=== PATIENT | female | born 1930 | race Caucasian/White ===

== ENCOUNTER 2017-01-24 21:21 | Inpatient (IN) ==
[2017-01-24 23:14] LABS: MANUAL DIFF NEEDED? NO
[2017-01-24 23:17] LABS: BASO% 0.3 % (0.0-0.8); EOS# 0.18 X1000 (0.0-0.7); EOS% 1.7 % (0.0-10.0); HEMATOCRIT 35.5 % (37.0-47.0); HEMOGLOBIN 11.3 g/dL (12.0-16.0); IMM GRAN# 0.09 X1000 (0.0-0.04); IMM GRAN% 0.8 % (0.0-0.5); LYMPH# 2.22 X1000 (1.2-3.4); LYMPH% 20.4 % (20.5-51.1); MCHC 31.8 g/dL (33-37); MCV 88.1 FL (81-99); MONO# 0.66 X1000 (0.11-0.59); MONO% 6.1 % (1.7-9.3); MPV 10.2 FL (7.4-10.4); NEUT% 70.7 % (42.2-75.2); PLT 318 X1000 (130-400); RBC 4.03 XMIL (4.2-5.4)
[2017-01-24 23:29] LABS: URINE SOURCE CATH
[2017-01-24 23:34] LABS: BILIRUBIN URINE NEGATIVE (NEGATIVE); BLOOD URINE MODERATE (NEGATIVE); COLOR ORANGE; GLUCOSE URINE NEGATIVE (NEGATIVE); LEUKOCYTES URINE LARGE (NEGATIVE); NITRITE URINE NEGATIVE (NEGATIVE); PROTEIN URINE 100 mg/dL (NEGATIVE); SP GRAVITY URINE 1.015; TURBIDITY URINE TURBID (CLEAR); UROBILINOGEN URINE NORMAL (NORMAL)
[2017-01-24 23:41] LABS: UR EPITHELIAL CELLS >10 /HPF (<10); URINE BACTERIA 2+ /HPF; URINE CULTURE NEEDED? YES; URINE MICRO REVIEW NEEDED? YES; URINE RBC TNTC /HPF (<10); URINE WBC TNTC /HPF (<10)
[2017-01-24 23:42] LABS: URINE CASTS NONE SEEN; URINE CRYSTALS NONE SEEN; URINE SMALL ROUND CELLS NONE SEEN
[2017-01-24 23:44] LABS: ALBUMIN 2.9 g/dL (3.5-5.0); CALCIUM 8.1 mg/dL (8.8-10.2); MAGNESIUM 1.8 mg/dL (1.5-2.7); POTASSIUM 4.9 mmol/L (3.5-5.1); TOTAL BILIRUBIN 0.17 mg/dL (0.20-1.00); TOTAL PROTEIN 6.3 g/dL (6.3-8.3)
[2017-01-24 23:47] LABS: UR AMPHETAMINES QUAL NONE DETECTED (NONE DETECT); UR BARBITUATES QUAL NONE DETECTED (NONE DETECT); UR BENZODIAZEPIN QUAL PRESUMPTIVE POSITIVE (NONE DETECT); UR CANNABINOIDS QUAL NONE DETECTED (NONE DETECT); UR COCAINE QUAL NONE DETECTED (NONE DETECT); UR METHADONE QUAL NONE DETECTED (NONE DETECT); UR OPIATES QUAL PRESUMPTIVE POSITIVE (NONE DETECT); UR OXYCODONE QUAL NONE DETECTED (NONE DETECT); UR PCP QUAL NONE DETECTED (NONE DETECT)
[2017-01-24] MEDS ORDERED: ROCEPHIN 1 GM/NS 50 ML IV ONE (23:50)
[2017-01-24] MEDS ORDERED: NS 1,000 ML IV ONE (23:50)
[2017-01-24 23:55] LABS: INR 1.12; PROTIME 11.9 Seconds (9.2-11.7); PTT 30.6 Seconds (22.0-36.0)
--- NOTE | 2017-01-24 23:58 | PROVIDER DOCUMENTATION ---
HPI-General Adult - General Source: EMS - History of Present Illness -Gen Adult Nature of Presenting Problems: Per EMS, [facility] states that they have been hearing rales in pts lungs all day today. Tonight, they states that pt fell out of bed and they felt like pt needed to be seen. PT is a poor historian and unable to answer any questions. They states that pt was also seeing family members and reaching out to her . Onset/Duration: reports: unsure Similar Symptoms Previously?: No Recently seen or treated by another doctor?: No <Mei Crawford - Last Filed: 01/25/17 00:04> <Jose Durant - Last Filed: 01/25/17 00:06> - General Chief Complaint: Abdominal Pain Stated Complaint: fell out of bed, diminished lung sounds Time Seen by Provider: 01/24/17 21:45 Allergies/Adverse Reactions: Patient Allergies Allergy/AdvReac Type Severity Reaction Status Date / Time sulfamethoxazole Allergy RASH Verified 11/03/16 11:22 [From Bactrim] trimethoprim [From Bactrim] Allergy RASH Verified 11/03/16 11:22 Home Medications: Home Medication List Medication Instructions Recorded Confirmed Last Taken Type Allopurinol 100 mg PO DAILY 01/24/17 01/24/17 01/24/17 09:00 History Alprazolam [Xanax] 0.25 mg PO TID 01/24/17 01/24/17 01/24/17 16:30 History Apixaban [Eliquis] 2.5 mg PO BID 01/24/17 01/24/17 01/24/17 21:00 History Cetirizine HCl [Zyrtec] 10 mg PO DAILY 01/24/17 01/24/17 01/24/17 09:00 History Diclofenac Sodium [Voltaren] 1 each TOP 4XDAY 01/24/17 01/24/17 01/24/17 21:00 History Diltiazem [Cardizem] 90 mg PO DAILY 01/24/17 01/24/17 01/24/17 09:00 History Docusate Sodium [Colace] 100 mg PO BID 01/24/17 01/24/17 01/24/17 21:00 History Duloxetine [Cymbalta] 60 mg PO DAILY 01/24/17 01/24/1717 09:00 History Furosemide [Lasix] 40 mg PO BID 01/24/17 01/24/17 01/24/17 21:00 History Guaifenesin [Guaifenesin ER] 600 mg PO BID 01/24/17 01/24/17 01/24/17 21:00 History Hydrocodone/Acetaminophen [Henri[place] 1 each PO Q6H PRN PRN 01/24/17 01/24/17 18:00 History 10-325 Tablet] Insulin Glargine [Lantus] 15 unit SUBQ DAILY 01/24/17 01/24/17 01/24/17 09:00 History Ipratropium/Albuterol Sulfate 1 each INH Q6H PRN PRN 01/24/17 01/24/17 01/21/17 09:00 History [Iprat-Albut 0.5-3(2.5) mg/3 ml] Levofloxacin [Levaquin] 500 mg PO DAILY 01/24/17 01/24/17 01/24/17 09:00 History Levothyroxine [Synthroid] 125 mcg PO QAM 01/24/17 01/24/17 01/24/17 06:00 History Lisinopril 10 mg PO QAM 01/24/17 01/24/17 01/24/17 09:00 History Lorazepam [Ativan] 0.5 mg PO QHS 01/24/17 01/24/17 01/24/17 21:00 History Lorazepam [Ativan] 1 mg PO QHS 01/24/17 01/24/17 01/24/17 21:00 History Omeprazole 20 mg PO BID 01/24/17 01/24/17 01/24/17 16:30 History Potassium Chloride E.r. [Klor-Con] 20 meq PO BID 01/24/17 01/24/17 01/24/17 21: 00 History Pramipexole [Mirapex] 1 each PO DAILY 01/24/17 01/24/17 01/24/17 09:00 History Pravastatin Sodium 80 mg PO QHS 01/24/17 01/24/17 01/24/17 21:00 History Pregabalin [Lyrica] 25 mg PO BID 01/24/17 01/24/17 01/24/17 21:00 History Review of Systems - Adult - REVIEW OF SYSTEMS - ADULT ROS:: unobtainable per condition Constitutional: reports: no symptoms reported Eyes: reports: no symptoms reported Ears, Nose, Mouth & Throat: reports: no symptoms reported Cardiovascular: reports: no symptoms reported Respiratory: reports: no symptoms reported Gastrointestinal: reports: no symptoms reported Genitourinary: reports: no symptoms reported Musculoskeletal: reports: no symptoms reported Integumentary: reports: no symptoms reported Neurological: reports: no symptoms reported Psychiatric: reports: no symptoms reported Endocrine: reports: no symptoms reported Hematologic/Lymphatic: reports: no symptoms reported Allergic/Immunologic: reports: no symptoms reported All Other Systems: Reviewed and Negative <Mie Crawford Last Filed: 01/25/17 00:04> Past History - Adult - PAST MEDICAL HISTORY-ADULT Review of Records: reports: Nursing Assessment Review, Medications Reviewed Major Childhood Illnesses: reports: denies history Cardiovascular: reports: CAD, HTN, hyperlipidemia, PAD, PVD Respiratory: reports: denies history Gastrointestinal: reports: denies history, GERD Neurological: reports: degenerative disease Endocrine/Immune: reports: Diabetes, thyroid disorder - PRIOR SURGERIES/PROCEDURES Surgical/Procedure History: reports: cholecystectomy, hysterectomy, orthopedic ( extremity) - IMMUNIZATION STATUS Childhood Immunizations: See Nurse Assessment Flu Vaccine: See Nurse Assessment - FAMILY HISTORY Family History: reviewed, not pertinent - SOCIAL HISTORY Smoking: non-smoker Substance Use: none/never Alcohol Use Frequency: never <Mei Crawford Last Filed: 01/25/17 00:04> Physical Exam-General - PHYSICAL EXAM-ADULT Initial Vital Signs Reviewed: Yes - CONSTITUTIONAL General Appearance: other (poor historian) - RESPIRATORY Respiratory: crackles (right lower lobe) - CARDIOVASCULAR Cardiovascular: irregularly irregular - GASTROINTESTINAL (ABDOMEN) Abdominal Exam: soft - PSYCHIATRIC Psych/Mental Status: disoriented x 3 <Mei Crawford - Last Filed: 01/25/17 00:04> Progress - XRAY 1 XRAY Study: Chest Impression: Abnormal XRAY Interpretation: right lower lobe infiltrate: Chiquis Durant(ER PA) - CONSULTS/PCP/HOSPITALIST Notification #1 *Consult/PCP/Hospitalist*: Dr. Rahman(hospitialist) Time Discussed: 00:05 Consult Disposition: Will see in ED, Admit <Mei Crawford - Last Filed: 01/25/17 00:04> Departure <TyMei - Last Filed: 01/25/17 00:04> - Departure Time of Disposition Order: 00:05 Certified Medical Emergency: Emergent <Jose Durant - Last Filed: 01/25/17 00:06> - Departure DIAGNOSIS: Acute kidney injury UTI (urinary tract infection) Qualifiers: Urinary tract infection type: site unspecified Hematuria presence: with hematuria Qualified Code(s): N39.0 - Urinary tract infection, site not specified ; R31.9 - Hematuria, unspecified Altered mental status Qualifiers: Altered mental status type: delirium Qualified Code(s): R41.0 - Disorientation , unspecified Pneumonia Qualifiers: Pneumonia type: due to unspecified organism Laterality: right Lung location: lower lobe of lung Qualified Code(s): J18.1 - Lobar pneumonia, unspecified organism Disposition: ADMITTED INPATIENT 09 Condition: Stable Attestation - Physician/ AIMEE Attestation Patient care was provided by Advanced Practice Provider:: Yes Advanced Practice Provider:: Jose Durant Advanced Practice Provider documentation review:: The Mid-level provider documentation, treatment plan and medical decision making was reviewed by the physician who agrees with all treatment and medical decision making by the P. <Jose Durant - Last Filed: 01/25/17 00:06> Physician Attestation
[2017-01-25] MEDS ORDERED: LEVAQUIN 750 MG in NS 150 ML IV SCH (01:45)
[2017-01-25] MEDS ORDERED: LEVAQUIN 750 MG/D5W 150 ML IV SCH (03:00)
[2017-01-25] MEDS: NS 1,000 ML IV SCH ×3 (03:11→17:16)
[2017-01-25] MEDS: ZOSYN 3.375 GM/NS 50 ML IV SCH ×4 (03:11→21:22)
--- NOTE | 2017-01-25 03:38 | HISTORY AND PHYSICAL ---
PRIMARY CARE PHYSICIAN: No primary care physician. HISTORY OF PRESENT ILLNESS: Mr. Merchant is an 86-year-old lady with a past medical history of chronic atrial fibrillation, hypertension, type 2 diabetes, hypothyroidism, reflux disease, peripheral arterial disease, coronary artery disease, iron-deficiency anemia, and gout who is a resident of [facility]. She was found by the staff on the floor trying to grab at the imaginary objects and talking to her who has been for a while. The patient was then brought in by EMS for further evaluation. She is still confused, albeit very calm. Thus, I am unable to get any meaningful information from the patient. She initially told the ER that she had abdominal pain but when I questioned her, she denies any pain from anywhere but complains of being thirsty. She also complains of being weak. REVIEW OF SYSTEMS: Obviously cannot be obtained because the patient is very confused even though she is awake. ALLERGIES: Sulfa and methimazole. HOME MEDICATION LIST: Patient is on hydrocodone 7.5 mg 1 tablet q.6 p.r.n., DuoNeb q.6 p.r.n., allopurinol 100 mg daily, Xanax 0.25 mg t.i.d., Eliquis 2.5 mg b.i.d., Ativan 1.5 mg at bedtime, Cardizem 90 mg daily, Zyrtec 10 mg daily, Colace 100 mg b.i.d., Cymbalta 60 mg daily, Voltaren gel 4 times a day, guaifenesin 600 mg b.i.d., Klor-Con 20 mEq b.i.d., Lantus 50 units daily, Lasix 40 mg b.i.d. She had previously been on Levaquin 500 mg daily, lisinopril 10 mg q.a.m., pregabalin 25 mg b.i.d., Mirapex 0.25 mg daily, omeprazole 20 mg b.i.d., pravastatin 80 mg at bedtime, Synthroid 125 mcg q.a.m. SURGICAL HISTORY: Patient has had cholecystectomy, hysterectomy, total left knee arthroscopy, back surgery. FAMILY HISTORY: Family history could not be obtained from patient for obvious reasons. SOCIAL HISTORY: She has been reportedly bedridden for 3 years and had been living with her family prior to moving to [place]. Note, there is no documented history of tobacco, alcohol, or illicit drug use. LAB WORK: Chest film shows right lower lobe pneumonia. No increased vascular markings. EKG shows atrial fibrillation with low voltage, with nonspecific ST-wave changes. Her other labs, white count 7000, hemoglobin and hematocrit 11 and 35, platelets 318,000 with no left shift. BUN is 1.8, creatinine has gone up from 0.6-1.8, glucose is 247. Troponin 0.23. ProBNP is 2399. PT and PTT are normal. Urine drug screen was only positive for opiates and benzodiazepines. Urinalysis shows large leukocytes, 2+ bacteria, too numerous to count WBCs and RBCs, moderate blood but she also has greater than 10 epithelial cells. PHYSICAL EXAMINATION: VITAL SIGNS: Blood pressure was initially 80/50 but since her bolus, is now 107/40. Heart rate is 77, respirations 14, temperature is 98.7 degrees, she is 98% on 2 L. GENERAL: Patient is an elderly, woman who is alert and only oriented to person but not to place or time. HEENT: Head is normocephalic, atraumatic. Eyes, ANA, EOMI. She is anicteric and mildly pale. ENT and oropharynx exam is notable for severe xerostomia. No exudates or erythema noted. No central cyanosis is noted. NECK: Supple. No JVD or carotid bruit. No thyromegaly. CHEST: The patient has decreased entry in both lung sarmiento. There are a few scattered wheezes. CARDIOVASCULAR: First and second heart sounds heard. No gallops, murmurs, or rubs. Rhythm is irregular. ABDOMEN: Scaphoid, soft. No focal areas of tenderness. No mass or organomegaly. Bowel sounds are hypoactive. RECTAL: Examination deferred at this time. EXTREMITIES: The patient has trace edema in her lower extremities. Pulses distally are symmetrical but are slightly diminished in volume. No clubbing or peripheral cyanosis. NEUROLOGICAL: Patient is able to move all extremities. No focality noted. SKIN: Intact with decreased turgor. No overt breakdown or erythema or rash. MUSCULOSKELETAL: Examination is grossly normal otherwise. ASSESSMENT: 1. Right lower lobe pneumonia, hospital-acquired. 2. Acute kidney injury secondary to dehydration. 3. Dehydration. 4. Encephalopathy which could be probably metabolic versus toxic (i.e., that is from acute kidney injury and possibly from toxicity from her central nervous system medications and Levaquin). 5. Coronary artery disease. 6. Chronic atrial fibrillation. 7. Type 2 diabetes, uncontrolled. 8. Hypothyroidism. 9. Peripheral arterial disease. 10. Reflux disease. 11. Anemia of chronic inflammation. 12. Gout. 13. Probable urinary tract infection. PLAN: At this time, we will start patient on Zosyn for anaerobic and gram-negative petrona coverage. I initially started the patient on Levaquin but because she had been taking this when she was discharged, it is highly unlikely that this will be beneficial in this patient. Also, because Levaquin has been associated with [employer] cognitive issues in elderly patients, I will discontinue that. I do not think patient has atypical pathogens so there is no strong indication for me to put her on, although dual gram-negative coverage with Levaquin may have been beneficial. We will start the patient on vancomycin to cover for MRSA since the patient has been in and out of many facilities. DuoNebs will be instituted and O2 support will be given for pneumonia. Patient's confusion, as I stated earlier, could be primary from her acute kidney injury, from poor oral intake, and also from poor clearance of [employer] active medications which will all be held for a couple of days until the patient's renal function improves. The patient will be hydrated. If hydration fails to correct this, then we will consider consulting nephrology to see. In the interim, we will discontinue SOTERO inhibitors and diuretics for now until the patient's renal function improves. Also, discontinue antihypertensives as she is borderline hypotensive. Other medical issues (i.e., her atrial fibrillation), she will continue with anticoagulation. Regarding diabetes, she will continue with Lantus and sliding scale. For coronary artery disease, continue statin therapy, (?), aspirin may need to be started. Probiotics will be given to prevent antibiotic induced diarrhea in this patient.
[2017-01-25 03:46] LABS: UR CREAT RANDOM 77.3 mg/dL (11-20)
--- NOTE | 2017-01-25 05:22 | EKG Report ---
Test Performed on : 01/24/2017 10:06:49 PM Test Reason : sob, epigastric pain Blood Pressure : / mmHG Vent. Rate : 093 BPM Atrial Rate : 267 BPM P-R Int : 000 ms QRS Dur : 074 ms QT Int : 328 ms P-R-T Axes : 000 053 050 degrees QTc Int : 407 ms Atrial fibrillation. Low voltage QRS Abnormal ECG When compared with ECG of 04-NOV-2016 09:17, Nonspecific T wave abnormality no longer evident in Inferior leads Nonspecific T wave abnormality no longer evident in Lateral leads Unconfirmed Result
--- NOTE | 2017-01-25 05:25 | EKG Report ---
Test Performed on : 01/25/2017 00:31:47 AM Test Reason : possible ecg change Blood Pressure : / mmHG Vent. Rate : 067 BPM Atrial Rate : 288 BPM P-R Int : 000 ms QRS Dur : 072 ms QT Int : 394 ms P-R-T Axes : 000 048 048 degrees QTc Int : 416 ms Atrial fibrillation. Low voltage QRS Cannot rule out Anterior infarct , age undetermined Abnormal ECG When compared with ECG of 24-JAN-2017 22:06, (Unconfirmed) No significant change was found Unconfirmed Result
[2017-01-25] MEDS: HUMALOG SUBQ SCH ×4 (06:37→21:26)
[2017-01-25] MEDS ORDERED: VANCOMYCIN 1 GM/NS 250 ML IV ONE (06:39)
[2017-01-25] MEDS ORDERED: VANCOMYCIN IV PER PHARMACY MISC SCH (06:39)
[2017-01-25] MEDS ORDERED: NS 500 ML IV ONE (06:53)
--- NOTE | 2017-01-25 07:38 | Diag Imaging Result Document ---
PROCEDURE NAME: HEAD W/O CONTRAST - 01/24/[address], 01/24/2017: A CT dose reduction protocol was used. COMPARISON: 10/21/2016. FINDINGS: The ventricles and sulci are normal in size and contour. There is no mass, hemorrhage, or evidence of acute ischemia. The bony calvaria is intact. The visualized paranasal sinuses and mastoid air cells are clear. IMPRESSION: Negative head CT. MTDD
[2017-01-25] MEDS: SYNTHROID PO SCH (08:07)
--- NOTE | 2017-01-25 08:18 | Diag Imaging Result Document ---
PROCEDURE NAME: CHEST-PORTABLE - 01/24/2017 SINGLE FRONTAL RADIOGRAPH OF THE CHEST: COMPARISON: 11/08/2016. FINDINGS: Inspiration is suboptimal. There is evidence of prior granulomatous disease, stable. There is suggestion of minimal subsegmental atelectasis at the lung bases. The lungs are clear otherwise. Cardiac silhouette and central vasculature are grossly unremarkable for AP technique. IMPRESSION: Poor inspiration and suggestion of minimal bibasilar atelectasis. No definite acute pathology, otherwise.
[2017-01-25] MEDS ORDERED: VANCOMYCIN 1.6 GM in NS 250 ML IV ONE (10:00)
[2017-01-25] MEDS: DUONEB (A & A) INH SCH ×4 (10:08→19:41)
[2017-01-25] MEDS: COLACE PO SCH ×2 (10:53→21:27)
[2017-01-25] MEDS: ELIQUIS PO SCH ×2 (10:53→21:26)
[2017-01-25] MEDS: CULTURELLE PO SCH ×2 (10:53→21:26)
[2017-01-25] MEDS: PRILOSEC PO SCH ×2 (10:54→21:25)
[2017-01-25] MEDS: MUCINEX PO SCH ×2 (10:54→21:25)
[2017-01-25] MEDS: LANTUS SUBQ SCH (10:55)
[2017-01-25] MEDS: XANAX PO SCH ×2 (10:55→21:24)
[2017-01-25] MEDS: PRAVACHOL PO SCH (21:25)
[2017-01-26] MEDS: ZOSYN 3.375 GM/NS 50 ML IV SCH ×4 (00:48→19:46)
[2017-01-26] MEDS: DUONEB (A & A) INH SCH ×4 (03:41→22:27)
[2017-01-26 04:48] LABS: MANUAL DIFF NEEDED? NO
[2017-01-26 04:52] LABS: BASO% 0.2 % (0.0-0.8); EOS# 0.28 X1000 (0.0-0.7); EOS% 3.1 % (0.0-10.0); HEMATOCRIT 32.5 % (37.0-47.0); HEMOGLOBIN 10.1 g/dL (12.0-16.0); IMM GRAN# 0.05 X1000 (0.0-0.04); IMM GRAN% 0.6 % (0.0-0.5); LYMPH# 1.47 X1000 (1.2-3.4); LYMPH% 16.2 % (20.5-51.1); MCH 27.4 PG (27-31); MCHC 31.1 g/dL (33-37); MCV 88.3 FL (81-99); MONO# 0.45 X1000 (0.11-0.59); MPV 10.4 FL (7.4-10.4); NEUT% 74.9 % (42.2-75.2); PLT 279 X1000 (130-400); RBC 3.68 XMIL (4.2-5.4)
[2017-01-26 05:08] LABS: AGAP 11; BUN 15 mg/dL (8-22); CALCIUM 7.4 mg/dL (8.8-10.2); CHLORIDE 108 mmol/L (98-107); COSMO 280; POTASSIUM 3.9 mmol/L (3.5-5.1); SODIUM 139 mmol/L (136-145); TCO2 20 mmol/L (25-35)
[2017-01-26] MEDS: HUMALOG SUBQ SCH ×4 (06:10→20:22)
[2017-01-26] MEDS: SYNTHROID PO SCH (06:16)
[2017-01-26] MEDS: XANAX PO SCH ×2 (09:05→20:16)
[2017-01-26] MEDS: COLACE PO SCH ×2 (09:05→20:17)
[2017-01-26] MEDS: ELIQUIS PO SCH ×2 (09:05→20:16)
[2017-01-26] MEDS: CULTURELLE PO SCH ×2 (09:06→20:16)
[2017-01-26] MEDS: PRILOSEC PO SCH ×2 (09:06→20:16)
[2017-01-26] MEDS: MUCINEX PO SCH ×2 (09:06→20:16)
[2017-01-26] MEDS: LANTUS SUBQ SCH (09:53)
--- NOTE | 2017-01-26 10:02 | PROGRESS NOTE ---
DATE: 01/26/2017 SUBJECTIVE: The patient is little confused today but awake, alert and talking. She is eating well this morning. OBJECTIVE: Vital signs: Blood pressure is in 98/63, pulse of 93, respirations 22, temperature 97.5 degrees, sat 96% on 2 liters. General Appearance: Obese white female a little confused. HEENT: Anicteric. Poor dentition. Neck: Supple. No JVD. No bruit. Cardiovascular: Mildly tachycardic at times. Respiratory: Coarse crackles bilaterally. GI: Soft, nontender, nondistended. Normoactive bowel sounds. Musculoskeletal: No clubbing, cyanosis, or edema. LABORATORY: Her white count 9.06, hemoglobin 10.1, hematocrit of 32.5, platelets of 279,000. Chemistry: Sodium 139, potassium 3.9, chloride 108, bicarb 20, BUN 15, creatinine 0.8, glucose of 136. Culture from the urine grew out gram-negative petrona that is less than 100,000 colony and blood culture grew out gram-positive cocci 1 out of 2 so far. ASSESSMENT AND PLAN: This is an 78-year-old, white female admitted to the hospital for confusion and altered mentation. 1. Right lower lobe pneumonia. We will continue Zosyn and vancomycin for healthcare-associated pneumonia. Cultures are pending so far and gram-positive cocci grew out of blood. 2. Urinary tract infection. The patient on Zosyn but is less than 100,000 colonies; treating is not necessary. 3. Acute renal failure secondary to dehydration, that is much improved. 4. Atrial fibrillation. The patient is on Eliquis for anticoagulations. We will resume her diltiazem when her blood pressure is better controlled. 5. Depression. Continue her Cymbalta. 6. Hypothyroidism. Continue Synthroid. 7. Gastroesophageal reflux disease. Continue Prilosec. 8. Hyperlipidemia. Continue Pravachol. 9. Code Status. The patient is a full code.
[2017-01-26] MEDS ORDERED: CALMOSEPTINE OINTMENT TOP PRN (10:11)
[2017-01-26] MEDS: LEVAQUIN 750 MG/D5W 150 ML IV SCH (11:37)
[2017-01-26] MEDS: SANTYL OINT TOP SCH (16:25)
[2017-01-26] MEDS: PRAVACHOL PO SCH (20:16)
[2017-01-26] MEDS ORDERED: LASIX PO SCH (21:00)
[2017-01-27] MEDS: ZOSYN 3.375 GM/NS 50 ML IV SCH ×3 (01:36→18:59)
[2017-01-27] MEDS: DUONEB (A & A) INH SCH ×4 (02:35→22:58)
[2017-01-27] MEDS: SYNTHROID PO SCH (06:15)
[2017-01-27] MEDS: HUMALOG SUBQ SCH ×4 (07:00→21:25)
[2017-01-27] MEDS: MUCINEX PO SCH ×2 (09:00→21:00)
[2017-01-27] MEDS: PRILOSEC PO SCH ×2 (09:00→21:00)
[2017-01-27] MEDS: XANAX PO SCH ×2 (09:00→21:00)
[2017-01-27] MEDS: ELIQUIS PO SCH ×2 (09:00→21:00)
[2017-01-27] MEDS: CULTURELLE PO SCH ×2 (09:00→21:00)
[2017-01-27] MEDS: COLACE PO SCH ×2 (09:00→21:24)
[2017-01-27] MEDS ORDERED: VANCOMYCIN 1.3 GM in NS 250 ML IV SCH ×4 (10:00)
--- NOTE | 2017-01-27 10:06 | PROGRESS NOTE ---
DATE: 01/27/2017 SUBJECTIVE: The patient is doing a little better today. She has no fever, no chills. No nausea, vomiting. She is eating well. Still confused. Her was at the bedside. All questions were invited and entertained. OBJECTIVE: Vital signs: Blood pressure is within normal limits at 99/63, currently it is 124 systolic, satting 100%. General appearance: White female in no acute distress, pleasantly confused. HEENT: Anicteric sclerae, conjunctivae. Neck: Supple. No JVD. No bruit. Cardiovascular: S1, S2. Normal rate and rhythm. No murmur, rubs, or gallops. Pulmonary: Clear to auscultation bilaterally. GI: Soft, nontender, nondistended. Normoactive bowel sounds. Musculoskeletal: No clubbing, cyanosis, or edema. LABORATORY: White count today 8.32, hemoglobin 10.6, hematocrit of 33.5, platelets 295. Sodium 141, potassium 3.5, chloride 107, bicarbonate 20, BUN 9, creatinine. 0.6, glucose of 125. ASSESSMENT AND PLAN: This is an 78-year-old, white female with dementia admitted for right lower lobe pneumonia. 1. Right lower lobe pneumonia. We will continue Zosyn and vancomycin for healthcare-associated pneumonia. Pending for blood culture to finalize. So far, gram-negative cocci grew out 1/2. 2. Urinary tract infection with gram-negative petrona, but less than 100,000 colonies. No treatment is necessary. 3. Acute renal failure, resolved. 4. Atrial fibrillation. Continue diltiazem and Eliquis. 5. Depression. Continue Cymbalta. 6. Hypothyroidism. Continue Synthroid. 7. Hyperlipidemia. Continue Pravachol. CODE STATUS: The patient is a full code.
[2017-01-27] MEDS ORDERED: NS 250 ML ONE (12:49)
[2017-01-27] MEDS: HALDOL IM PRN ×2 (15:30→21:00)
--- NOTE | 2017-01-27 15:57 | Diag Imaging Result Document ---
PROCEDURE NAME: CHEST-PORTABLE - 01/27/2017 PORTABLE CHEST AT 1045 HOURS: FINDINGS: The inspiration is slightly suboptimal. There may be minimal atelectasis in the lung bases. The heart size is at the upper limits of normal. IMPRESSION: Bibasilar atelectasis.
[2017-01-27 17:04] LABS: BASO% 0.2 % (0.0-0.8); EOS% 2.4 % (0.0-10.0); HEMATOCRIT 33.5 % (37.0-47.0); HEMOGLOBIN 10.6 g/dL (12.0-16.0); IMM GRAN# 0.09 X1000 (0.0-0.04); IMM GRAN% 1.1 % (0.0-0.5); LYMPH# 1.82 X1000 (1.2-3.4); LYMPH% 21.9 % (20.5-51.1); MANUAL DIFF NEEDED? NO; MCH 27.7 PG (27-31); MCHC 31.6 g/dL (33-37); MCV 87.7 FL (81-99); MONO# 0.56 X1000 (0.11-0.59); MONO% 6.7 % (1.7-9.3); MPV 10.2 FL (7.4-10.4); NEUT% 67.7 % (42.2-75.2); PLT 295 X1000 (130-400); RBC 3.82 XMIL (4.2-5.4)
[2017-01-27 17:09] LABS: AGAP 14; BUN 9 mg/dL (8-22); CALCIUM 7.9 mg/dL (8.8-10.2); CHLORIDE 107 mmol/L (98-107); COSMO 281; POTASSIUM 3.5 mmol/L (3.5-5.1); SODIUM 141 mmol/L (136-145); TCO2 20 mmol/L (25-35)
[2017-01-27] MEDS: LANTUS SUBQ SCH (17:24)
[2017-01-27] MEDS: LEVAQUIN 750 MG/D5W 150 ML IV SCH (17:25)
[2017-01-27] MEDS: SANTYL OINT TOP SCH (17:29)
[2017-01-27 20:35] LABS: INR 1.15; PROTIME 12.2 Seconds (9.2-11.7)
[2017-01-27] MEDS: PRAVACHOL PO SCH (21:00)
--- NOTE | 2017-01-27 21:39 | Diag Imaging Result Document ---
PROCEDURE NAME: CHEST-PORTABLE - 01/27/2017 AP PORTABLE CHEST DATED 01/27/2017 AT 1328 HOURS: FINDINGS: There is a right-sided PICC line with its tip just above the right atrium. There is some atelectasis in both lung bases, particularly in the left costophrenic angle. No previous studies are available for comparison. The cardiomediastinal silhouette is slightly enlarged and the pulmonary vascularity is prominent. There are some scattered granulomata. IMPRESSION: Borderline cardiomegaly with bibasilar atelectasis.
[2017-01-28] MEDS: DUONEB (A & A) INH SCH ×4 (02:50→19:33)
[2017-01-28] MEDS: ZOSYN 3.375 GM/NS 50 ML IV SCH ×2 (03:19→08:15)
[2017-01-28 04:33] LABS: MANUAL DIFF NEEDED? NO
[2017-01-28 04:40] LABS: BASO% 0.3 % (0.0-0.8); EOS# 0.17 X1000 (0.0-0.7); EOS% 1.7 % (0.0-10.0); HEMATOCRIT 30.5 % (37.0-47.0); HEMOGLOBIN 9.9 g/dL (12.0-16.0); IMM GRAN# 0.13 X1000 (0.0-0.04); IMM GRAN% 1.3 % (0.0-0.5); LYMPH# 2.16 X1000 (1.2-3.4); LYMPH% 21.6 % (20.5-51.1); MCH 27.9 PG (27-31); MCHC 32.5 g/dL (33-37); MCV 85.9 FL (81-99); MONO# 0.62 X1000 (0.11-0.59); MONO% 6.2 % (1.7-9.3); MPV 9.5 FL (7.4-10.4); NEUT% 68.9 % (42.2-75.2); PLT 321 X1000 (130-400); RBC 3.55 XMIL (4.2-5.4)
[2017-01-28 04:55] LABS: AGAP 13; BUN 5 mg/dL (8-22); CALCIUM 8.3 mg/dL (8.8-10.2); CHLORIDE 107 mmol/L (98-107); COSMO 279; POTASSIUM 3.5 mmol/L (3.5-5.1); SODIUM 140 mmol/L (136-145); TCO2 20 mmol/L (25-35)
[2017-01-28] MEDS: SYNTHROID PO SCH (06:44)
[2017-01-28] MEDS: HUMALOG SUBQ SCH ×4 (06:44→20:37)
[2017-01-28] MEDS: CULTURELLE PO SCH ×2 (08:15→20:33)
[2017-01-28] MEDS: ELIQUIS PO SCH ×2 (08:15→20:34)
[2017-01-28] MEDS: PRILOSEC PO SCH ×2 (08:15→20:34)
[2017-01-28] MEDS: XANAX PO SCH ×2 (08:15→20:34)
[2017-01-28] MEDS: MUCINEX PO SCH ×2 (08:15→20:34)
[2017-01-28] MEDS: HALDOL IM PRN (08:15)
[2017-01-28] MEDS: SANTYL OINT TOP SCH (08:16)
--- NOTE | 2017-01-28 09:42 | PROGRESS NOTE ---
DATE: 01/28/2017 SUBJECTIVE: The patient is having coughing fits this morning. She is a little drowsy. Still confused which is at her baseline. OBJECTIVE: Vital signs: Blood pressure 120/78, pulse of 100, respirations 24, temperature 97.2 degrees, saturation of 97% on 2 L. General appearance: Well-developed, well-nourished white female in mild distress. HEENT: Anicteric. Clear conjunctivae. Neck: Supple. No JVD. No bruit. Cardiovascular: S1, S2. Normal rate and rhythm. No murmur, rubs, or gallops. Pulmonary: Coarse crackles bilaterally. GI: Soft, nontender, nondistended. Normoactive bowel sounds. Musculoskeletal: No clubbing, cyanosis, or edema. LABORATORY: White count 10.02, hemoglobin 9.9, hematocrit 30.5, platelet of 321,000. Chemistry: Sodium 140, potassium 3.5, chloride 107, bicarb 20, BUN 5, creatinine 0.5, glucose 139. Blood culture grew out enterococcal faecalis, sensitive to vancomycin and ampicillin. Her urine grew out Enterobacter complex but less than 100,000. ASSESSMENT AND PLAN: 1. This is an 86-year-old admitted to the hospital for acute respiratory failure and was found to have pneumonia. Sputum culture grew out enterococcal faecalis that is sensitive to ampicillin and vancomycin. Will stop the vancomycin and Zosyn. We will start the patient on ampicillin. 2. Urinary tract infection, less than 100,000 colony. We will not treat. 3. Acute renal failure, resolved. 4. Atrial fibrillation. Continue diltiazem and Eliquis. 5. Depression. Continue Cymbalta. 6. Hypothyroidism. Continue Synthroid. 7. Hyperlipidemia. Continue Pravachol. 8. Dementia with confusion. At her baseline.
[2017-01-28] MEDS: COLACE PO SCH ×2 (11:01→20:34)
[2017-01-28] MEDS: UNASYN 3 GM/NS 3 GM/100 ML IVPB IV SCH ×3 (11:10→22:53)
[2017-01-28] MEDS: LANTUS SUBQ SCH (18:12)
[2017-01-28] MEDS: LEVAQUIN 750 MG/D5W 150 ML IV SCH (18:17)
[2017-01-28] MEDS: PRAVACHOL PO SCH (20:33)
[2017-01-29] MEDS: DUONEB (A & A) INH SCH ×4 (02:39→19:29)
[2017-01-29] MEDS: UNASYN 3 GM/NS 3 GM/100 ML IVPB IV SCH ×3 (04:34→16:18)
[2017-01-29 04:44] LABS: MANUAL DIFF NEEDED? NO
[2017-01-29 04:47] LABS: BASO% 0.3 % (0.0-0.8); EOS# 0.12 X1000 (0.0-0.7); EOS% 1.3 % (0.0-10.0); HEMATOCRIT 28.8 % (37.0-47.0); HEMOGLOBIN 9.3 g/dL (12.0-16.0); IMM GRAN# 0.09 X1000 (0.0-0.04); LYMPH# 1.58 X1000 (1.2-3.4); MCH 27.8 PG (27-31); MCHC 32.3 g/dL (33-37); MCV 86.2 FL (81-99); MONO# 0.61 X1000 (0.11-0.59); MONO% 6.6 % (1.7-9.3); MPV 9.4 FL (7.4-10.4); NEUT% 73.8 % (42.2-75.2); PLT 300 X1000 (130-400); RBC 3.34 XMIL (4.2-5.4)
[2017-01-29 05:41] LABS: AGAP 15; BUN 3 mg/dL (8-22); CALCIUM 8.2 mg/dL (8.8-10.2); CHLORIDE 109 mmol/L (98-107); COSMO 282; POTASSIUM 2.7 mmol/L (3.5-5.1); SODIUM 142 mmol/L (136-145); TCO2 18 mmol/L (25-35)
[2017-01-29] MEDS: HUMALOG SUBQ SCH ×4 (06:01→20:10)
[2017-01-29] MEDS: SYNTHROID PO SCH (06:58)
[2017-01-29 07:37] LABS: MAGNESIUM 1.6 mg/dL (1.5-2.7)
[2017-01-29] MEDS ORDERED: MAGNESIUM SULFATE 2 GM/S.W.I. 2 GM/50 ML IVPB IV ONE (08:43)
[2017-01-29] MEDS ORDERED: POTASSIUM PHOSPHATE 40 MMOL in NS 250.0000 ML IV ONE (09:00)
[2017-01-29] MEDS ORDERED: POTASSIUM PHOSPHATE 40 MMOL in NS 250 ML IV ONE (09:00)
[2017-01-29] MEDS: CULTURELLE PO SCH ×2 (09:12→20:10)
[2017-01-29] MEDS: CYMBALTA PO SCH (09:13)
[2017-01-29] MEDS: PRILOSEC PO SCH ×2 (09:13→20:10)
[2017-01-29] MEDS: XANAX PO SCH ×2 (09:13→20:10)
[2017-01-29] MEDS: COLACE PO SCH ×2 (09:13→20:11)
[2017-01-29] MEDS: MUCINEX PO SCH ×2 (09:13→20:10)
[2017-01-29] MEDS: ELIQUIS PO SCH ×2 (09:20→20:10)
[2017-01-29] MEDS: SANTYL OINT TOP SCH (09:20)
[2017-01-29] MEDS: LANTUS SUBQ SCH (09:21)
--- NOTE | 2017-01-29 14:14 | PROGRESS NOTE ---
DATE: 01/29/2017 SUBJECTIVE: The patient is resting comfortably in bed. She has no complaints. No acute events noted overnight. OBJECTIVE: Vital Signs: Temperature 98 degrees, blood pressure 146/64, heart rate 89, respirations 20, O2 saturations 100% on 2 L nasal cannula. General: This is an elderly female, lying comfortably in bed, in no acute distress. Head: Normocephalic, atraumatic. Heart: S1, S2 normal. Regular rate and rhythm. Lungs: Clear to auscultation bilaterally. No crackles. No rales. Abdomen: Positive bowel sounds. Soft, nontender, nondistended. Extremities: No edema. No cyanosis. LABS: White blood cell count 9.2, hemoglobin 9.3, hematocrit 28, platelets 300, 000. Sodium 142, potassium 2.7, chloride 109, CO2 18. BUN 3, creatinine 0.5, glucose 148. Calcium 8.2, phosphorus 1.6, magnesium 1.6. ASSESSMENT AND PLAN: 1. Enterococcus faecalis bacteremia. The patient is currently on ampicillin. 2. Atrial fibrillation. The patient is rate controlled on diltiazem. Continue on Eliquis. 3. Situational depression. Continue on Cymbalta. 4. Hypothyroidism. Continue on Synthroid. 5. Dyslipidemia. Continue on Pravachol. The patient is stable for transfer to the medical floor. Continue to follow with physical therapy. cc: Lazara Garcia MD [facility]
[2017-01-29] MEDS: LEVAQUIN 750 MG/D5W 150 ML IV SCH (16:18)
[2017-01-29] MEDS: AMPICILLIN 2 GM/NS 2 GM/100 ML IVPB IV SCH (20:09)
[2017-01-29] MEDS: PRAVACHOL PO SCH (20:10)
[2017-01-29] MEDS: MAXIPIME 2 GM/NS 2 GM/100 ML IVPB IV SCH (20:10)
--- NOTE | 2017-01-29 21:20 | CONSULTATION ---
DATE OF CONSULTATION: 01/29/2017 CONCLUSION: Patient was admitted to the hospital with an altered mental status the exact etiology of which is uncertain to me. She does have a positive blood culture for enterococcus. This could represent a true bacteremia or it could be a contaminant. The patient also has an Enterobacter urinary tract infection. Again this could be asymptomatic or could be responsible for her being admitted to the hospital. RECOMMENDATIONS: I have placed the patient on IV ampicillin and cefepime to treat the enterococcal bacteremia and Enterobacter UTI respectively. DISCUSSION: The patient is unable provide a history. No family member is present. History was taken from review of the data in the computer. Patient was admitted to the hospital with an altered mental status. She has a CBC with a white count of 9280, hemoglobin 9.3 , and platelet count 300,000. Creatinine is 0.5. GFR is greater than 60. One blood culture is growing enterococcus. A urine culture is growing Enterobacter. Chest x-ray shows bibasilar atelectasis. PAST MEDICAL HISTORY: Positive for atrial fibrillation, hypertension, diabetes mellitus, hypothyroidism, gastroesophageal reflux disease, peripheral arterial disease, chronic venous insufficiency of the legs, degenerative joint disease, coronary artery disease, iron deficiency anemia, gout. INFECTIOUS DISEASE HISTORY: Positive for urinary tract infections and leg cellulitis. PAST SURGICAL HISTORY: Positive for cholecystectomy, hysterectomy and left total knee arthroplasty. FAMILY HISTORY: Unobtainable. SOCIAL HISTORY: The patient lives at [facility]. She has been bedridden for 3 years. She does not smoke cigarettes, drink alcoholic beverages or use illicit drugs. Patient has a history of drug allergy to trimethoprim sulfamethoxazole. MEDICATIONS: Taken at the snf include Lyrica, pravastatin, Mirapex, omeprazole, Ativan, Synthroid, Levaquin, ipratropium inhaler, insulin, hydrocodone, furosemide, Cymbalta, Colace, Cardizem, Voltaren, Zyrtec, Eliquis, Xanax and allopurinol. PHYSICAL EXAMINATION: Vital Signs: Temperature is 97.6, pulse 98, respirations 23, blood pressure 140/80. The patient's weight is listed as 165 pounds. General: This is an ill- appearing, elderly female. She is in no acute distress. Head, eyes, ears, nose , and throat: I could not really test how good her hearing is. She does track with her eyes. She did attempt to talk but for the most part, I could not understand what she was saying. Neck: No meningismus. Lungs: There were scattered rhonchi bilaterally. Cardiovascular: Irregular heart rate. Abdomen: Soft and nontender. Neurologic: The patient is lethargic. She did sometimes get a little more alert and start talking but as mentioned above, I could not understand what she was saying. She did not follow request to move her extremities. There was no tremor. Integument: No rash. Thank you for the consult. cc: Carlos Ardon MD [facility]
[2017-01-29] MEDS: NORCO-10 PO PRN (21:31)
[2017-01-30] MEDS: AMPICILLIN 2 GM/NS 2 GM/100 ML IVPB IV SCH ×4 (02:11→20:43)
[2017-01-30] MEDS: DUONEB (A & A) INH SCH ×4 (03:11→22:57)
[2017-01-30 06:20] LABS: MANUAL DIFF NEEDED? NO
[2017-01-30] MEDS: NORCO-10 PO PRN ×2 (06:23→20:52)
[2017-01-30] MEDS: SYNTHROID PO SCH (06:23)
[2017-01-30 06:26] LABS: BASO% 0.2 % (0.0-0.8); EOS# 0.19 X1000 (0.0-0.7); EOS% 2.1 % (0.0-10.0); HEMATOCRIT 29.5 % (37.0-47.0); HEMOGLOBIN 9.5 g/dL (12.0-16.0); IMM GRAN# 0.12 X1000 (0.0-0.04); IMM GRAN% 1.3 % (0.0-0.5); LYMPH# 1.72 X1000 (1.2-3.4); LYMPH% 18.8 % (20.5-51.1); MCH 27.5 PG (27-31); MCHC 32.2 g/dL (33-37); MCV 85.5 FL (81-99); MONO# 0.59 X1000 (0.11-0.59); MONO% 6.4 % (1.7-9.3); MPV 9.5 FL (7.4-10.4); NEUT% 71.2 % (42.2-75.2); PLT 295 X1000 (130-400); RBC 3.45 XMIL (4.2-5.4)
[2017-01-30] MEDS: HUMALOG SUBQ SCH ×3 (06:40→16:23)
[2017-01-30 07:14] LABS: AGAP 14; BUN 4 mg/dL (8-22); CHLORIDE 109 mmol/L (98-107); COSMO 285; MAGNESIUM 1.9 mg/dL (1.5-2.7); POTASSIUM 3.6 mmol/L (3.5-5.1); SODIUM 143 mmol/L (136-145); TCO2 20 mmol/L (25-35)
--- NOTE | 2017-01-30 07:37 | Diag Imaging Result Document ---
PROCEDURE NAME: CHEST-PORTABLE - 01/30/2017 SINGLE FRONTAL RADIOGRAPH OF THE CHEST: COMPARISON: 01/27/2017. FINDINGS: Right PICC line is in stable position. Inspiration is suboptimal. Pulmonary vascularity remains mildly prominent similar to the previous study suggesting at least mild pulmonary venous congestion. No new consolidations are identified. Cardiac silhouette is stable. Mild atelectasis at the bases is unchanged. IMPRESSION: Essentially stable chest.
[2017-01-30] MEDS: MAXIPIME 2 GM/NS 2 GM/100 ML IVPB IV SCH ×2 (08:20→20:43)
[2017-01-30] MEDS: COLACE PO SCH ×2 (08:21→20:44)
[2017-01-30] MEDS: XANAX PO SCH ×2 (08:21→20:44)
[2017-01-30] MEDS: PRILOSEC PO SCH ×2 (08:21→20:43)
[2017-01-30] MEDS: CYMBALTA PO SCH (08:21)
[2017-01-30] MEDS: MUCINEX PO SCH ×2 (08:22→20:44)
[2017-01-30] MEDS: ELIQUIS PO SCH ×2 (08:22→20:43)
[2017-01-30] MEDS: CULTURELLE PO SCH ×2 (08:22→20:44)
[2017-01-30] MEDS: DIFLUCAN PO SCH (11:25)
[2017-01-30] MEDS: SANTYL OINT TOP SCH (11:27)
[2017-01-30] MEDS ORDERED: INSULIN PEN NEEDLES ONE (12:41)
--- NOTE | 2017-01-30 13:36 | PROGRESS NOTE ---
DATE: 01/30/2017 SUBJECTIVE: The patient is resting comfortably in bed. She has no complaints. No acute events noted overnight. OBJECTIVE: Vital Signs: Temperature 98 degrees, blood pressure 136/58, heart rate 108, respirations 17, O2 saturations 98% on 2.5 L nasal cannula. General: This is an elderly female, lying in bed, in no acute distress. Head: Normocephalic atraumatic. Heart: S1, S2. Normal. Regular rate and rhythm. Lungs: Clear to auscultation bilaterally. No wheezing. No rales. No rhonchi. Abdomen: Positive bowel sounds. Soft, nontender, nondistended. Extremity: No edema. No cyanosis. No calf tenderness. LABS: Sodium 143, potassium 3.6, chloride 109, CO2 20, BUN 4, creatinine 0.4. White blood count 9.1, hemoglobin 9.5, hematocrit 29, platelets 295,000. ASSESSMENT AND PLAN: 1. Enterococcus faecalis bacteremia. Continue on the current antibiotic regimen as directed by Dr. Ardon. 2. Enterobacter urinary tract infection. Continue on IV antibiotic therapy. 3. Atrial fibrillation. The patient is rate controlled. Continue on Cardizem. 4. Hypothyroidism. Continue Synthroid. 5. Situational depression. Continue on Cymbalta. 6. Dyslipidemia. Continue on Pravachol. 7. Will consult physical therapy. cc: Lazara Garcia MD
[2017-01-30] MEDS: LANTUS SUBQ SCH (15:00)
--- NOTE | 2017-01-30 18:08 | PROGRESS NOTE ---
DATE: 01/30/2017 PRESENT ILLNESS: The patient has an enterococcal bacteremia and an Enterobacter urinary tract infection. MEDICATIONS: The patient is on day 1 of a combination of cefepime and ampicillin being given IV. PHYSICAL EXAMINATION: Vital Signs: Temperature is 97.6 degrees, pulse 95, respirations 18, blood pressure 128/76. General: This is an ill-appearing, elderly female who is in no acute distress. Lungs: Clear to auscultation. Cardiovascular: The heart rate was rapid, for most of the time, I thought that the heart rate was regular. However there were episodes where it seemed to be irregular. Abdomen: Soft and nontender. Neurologic: The patient does talk but it is very difficult for me to understand her speech. She did not follow request to move her extremities. LAB AND X-RAY: Today the CBC showed a white count of 9160, hemoglobin 9.5, platelet count 295,000. Creatinine 0.4. GFR is greater than 60. Chest x-ray shows pulmonary venous congestion. ASSESSMENT AND PLAN: The patient is going to be receiving ampicillin for her enterococcal bacteremia and cefepime for her Enterobacter urinary tract infection. COMORBIDITY: Includes the fact that she is very elderly. She also has diabetes mellitus. She does not have a pulmonary infiltrate but by virtue of having gastroesophageal reflux disease she would be at high risk for an aspiration pneumonia. cc: Carlos Ardon MD
[2017-01-30] MEDS: PRAVACHOL PO SCH (20:44)
[2017-01-31] MEDS: HUMALOG SUBQ SCH ×5 (00:22→21:58)
[2017-01-31] MEDS: DUONEB (A & A) INH SCH ×6 (03:03→23:14)
[2017-01-31] MEDS: AMPICILLIN 2 GM/NS 2 GM/100 ML IVPB IV SCH ×3 (03:10→16:42)
[2017-01-31] MEDS: SYNTHROID PO SCH (06:49)
[2017-01-31 07:47] LABS: AGAP 10; BUN 4 mg/dL (8-22); CALCIUM 7.8 mg/dL (8.8-10.2); CHLORIDE 107 mmol/L (98-107); COSMO 275; POTASSIUM 3.2 mmol/L (3.5-5.1); SODIUM 139 mmol/L (136-145); TCO2 22 mmol/L (25-35)
[2017-01-31 07:53] LABS: HEMATOCRIT 27.1 % (37.0-47.0); HEMOGLOBIN 8.5 g/dL (12.0-16.0); MCH 27.6 PG (27-31); MCHC 31.4 g/dL (33-37); MPV 9.6 FL (7.4-10.4); RBC 3.08 XMIL (4.2-5.4)
[2017-01-31] MEDS ORDERED: KLOR-CON PO ONE (08:16)
[2017-01-31] MEDS: CULTURELLE PO SCH ×2 (08:19→21:57)
[2017-01-31] MEDS: ELIQUIS PO SCH ×2 (08:19→21:57)
[2017-01-31] MEDS: MUCINEX PO SCH ×2 (08:19→21:56)
[2017-01-31] MEDS: PRILOSEC PO SCH ×2 (08:19→21:56)
[2017-01-31] MEDS: COLACE PO SCH ×2 (08:19→21:57)
[2017-01-31] MEDS: CYMBALTA PO SCH (08:19)
[2017-01-31] MEDS: DIFLUCAN PO SCH (08:20)
[2017-01-31] MEDS: MAXIPIME 2 GM/NS 2 GM/100 ML IVPB IV SCH ×2 (08:35→21:50)
[2017-01-31] MEDS: LANTUS SUBQ SCH (08:38)
[2017-01-31] MEDS ORDERED: LASIX IV ONE (09:03)
[2017-01-31] MEDS ORDERED: MUCOMYST 20% INH ONE (09:03)
--- NOTE | 2017-01-31 11:07 | PROGRESS NOTE ---
DATE: 01/31/2017 SUBJECTIVE: The patient is resting comfortably in bed. She has no complaints. OBJECTIVE: Vital Signs: Temperature 97.9 degrees, blood pressure 147/64, heart rate 81, respirations 18, O2 saturations 96% on 2.5 L nasal cannula. General: This is a chronically ill- appearing, elderly female, lying in bed in no acute distress. Head: Normocephalic, atraumatic. Heart: S1, S2. Normal. Regular rate and rhythm. Lungs: Coarse breath sounds with rhonchi. Abdomen: Positive bowel sounds. Soft, nontender, nondistended. Extremities: Trace pedal edema. No cyanosis. No calf tenderness. Neurologic: The patient is awake and alert. She does have dementia. LABS: White blood cell count 7.8, hemoglobin 8.5, hematocrit 27, platelets 265. Sodium 139, potassium 3.2, chloride 107, CO2 22, BUN 4, creatinine 0.4, glucose 114, calcium 7.8. ASSESSMENT AND PLAN: 1. Enterococcus faecalis bacteremia. Continue on intravenous antibiotic therapy. 2. Enterobacter urinary tract infection. Continue on intravenous antibiotic therapy. 3. LLL pneumonia. Continue on antibiotics and bronchodilator therapy. 4. Hypokalemia. Will replace the patient's potassium. 5. Atrial fibrillation. The patient is currently rate controlled on Cardizem. 6. Situational depression. Continue on Cymbalta. 7. Dyslipidemia. Continue on Pravachol. 8. Diabetes mellitus type 2. Continue on Lantus plus sliding scale insulin. 9. Continue with physical therapy. cc: Lazara Garcia MD [facility]
--- NOTE | 2017-01-31 12:23 | Diag Imaging Result Document ---
PROCEDURE NAME: CT THORAX W/O CONTRAST - 01/31/2017 CT CHEST WITHOUT CONTRAST: COMPARISON: No comparison films. FINDINGS: There are small bilateral pleural effusions. The one on the left measures 2.8 cm posteriorly and inferiorly in the midline. The one on the right is smaller measuring approximately 1.4 cm. The heart is enlarged. No thoracic aortic aneurysm. There are many calcified mediastinal and hilar lymph nodes with multiple scattered calcified granulomata. There is atelectasis in the lower lobes. No consolidation. No bronchiectasis. There is a right-sided PICC line. Questionable small underlying infiltrate posteriorly in the left lower lobe. Limited images through the upper abdomen reveal a cholecystectomy. IMPRESSION: 1. Cardiomegaly with small effusions 2. Basilar atelectasis with a questionable underlying infiltrate in the left lower lobe. 3. There is evidence of a prior granulomatous infection. [facility]
[2017-01-31] MEDS: SANTYL OINT TOP SCH (12:42)
[2017-01-31] MEDS: XANAX PO SCH (13:02)
--- NOTE | 2017-01-31 17:36 | PROGRESS NOTE ---
DATE: 01/31/2017 PRESENT ILLNESS: The patient has an enterococcal bacteremia and an Enterobacter urinary tract infection. Today the patient had a CT scan of the chest and it showed bibasilar atelectasis with a questionable infiltrate in the base. MEDICATIONS: This is day two of combination of ampicillin and cefepime. PHYSICAL EXAMINATION: Vital Signs: Temperature is 98.6 degrees, respirations 18, blood pressure 137/60. General: This is an obese elderly female who is in no acute distress. She is lethargic. Lungs: Clear to auscultation. Cardiovascular: Heart rate was rapid and regular. Abdomen: Soft and nontender. LABORATORY AND X-RAY: CT scan of the chest shows bibasilar atelectasis with questionable infiltrate. Creatinine 0.4. GFR is greater than 60. The patient's CBC shows a white count of 7860, hemoglobin 8.5, and platelet count 265,000. Creatinine 0.4, GFR is greater than 60.. ASSESSMENT AND PLAN: 1. My plan will be to continue the ampicillin and cefepime for the patient's urinary tract infection bacteremia and possible pneumonia. 2. Comorbidities: She is elderly. She has diabetes mellitus and gastroesophageal reflux disease. cc: Carlos Ardon MD
[2017-01-31] MEDS: MUCOMYST 20% INH SCH (19:33)
[2017-01-31] MEDS: PRAVACHOL PO SCH (21:56)
[2017-02-01] MEDS: XANAX PO SCH ×2 (00:07→08:18)
[2017-02-01] MEDS: AMPICILLIN 2 GM/NS 2 GM/100 ML IVPB IV SCH ×5 (00:07→15:52)
[2017-02-01] MEDS: DUONEB (A & A) INH SCH ×6 (03:35→23:03)
[2017-02-01] MEDS: SYNTHROID PO SCH (06:21)
[2017-02-01] MEDS: HUMALOG SUBQ SCH ×3 (06:55→15:55)
[2017-02-01 07:08] LABS: HEMATOCRIT 28.7 % (37.0-47.0); HEMOGLOBIN 9.2 g/dL (12.0-16.0); MCH 27.6 PG (27-31); MCHC 32.1 g/dL (33-37); MCV 86.2 FL (81-99); MPV 9.4 FL (7.4-10.4); RBC 3.33 XMIL (4.2-5.4)
[2017-02-01 07:20] LABS: AGAP 11; BUN 5 mg/dL (8-22); CHLORIDE 105 mmol/L (98-107); COSMO 278; MAGNESIUM 1.6 mg/dL (1.5-2.7); POTASSIUM 3.9 mmol/L (3.5-5.1); SODIUM 140 mmol/L (136-145); TCO2 24 mmol/L (25-35)
[2017-02-01] MEDS: CYMBALTA PO SCH (08:18)
[2017-02-01] MEDS: MAXIPIME 2 GM/NS 2 GM/100 ML IVPB IV SCH (08:18)
[2017-02-01] MEDS: PRILOSEC PO SCH (08:18)
[2017-02-01] MEDS: COLACE PO SCH (08:18)
[2017-02-01] MEDS: CULTURELLE PO SCH (08:18)
[2017-02-01] MEDS: SANTYL OINT TOP SCH (08:18)
[2017-02-01] MEDS: MUCINEX PO SCH (08:18)
[2017-02-01] MEDS: LANTUS SUBQ SCH ×2 (08:19→11:49)
[2017-02-01] MEDS: DIFLUCAN PO SCH (08:19)
[2017-02-01] MEDS: ELIQUIS PO SCH (08:19)
[2017-02-01] MEDS ORDERED: NEUTRA-PHOS PO ONE (10:19)
[2017-02-01] MEDS ORDERED: MAGNESIUM SULFATE 2 GM/S.W.I. 2 GM/50 ML IVPB IV ONE (10:19)
[2017-02-01] MEDS: MUCOMYST 20% INH SCH ×2 (11:25→19:23)
--- NOTE | 2017-02-01 13:29 | PROGRESS NOTE ---
DATE: 02/01/2017 SUBJECTIVE: The patient is resting comfortably in bed. She has no complaints at this time. No acute events noted overnight. OBJECTIVE: Vital Signs: Temperature 99 degrees, blood pressure 141/77, heart rate 89, respirations 18, and O2 saturations 100% on 2 liters nasal cannula. General: This is a chronically ill-appearing elderly female, lying in bed. Head: Normocephalic, atraumatic. Heart: S1 and S2, normal. Regular rate and rhythm. Lungs: Clear to auscultation bilaterally. Abdomen: Positive bowel sounds. Soft, nontender, nondistended. Extremities: No edema. No cyanosis. No calf tenderness. Neurologic: The patient is alert and oriented x3. LABORATORIES: White blood cell count 8.2, hemoglobin 9.2, hemoglobin 28, platelets 274,000. BUN 5, creatinine 0.4, glucose 117, sodium 140, potassium 3.9, calcium 8. ASSESSMENT AND PLAN: 1. Enterococcus faecalis bacteremia. Continue on intravenous antibiotic therapy. 2. Left lower lobe pneumonia. Continue on intravenous antibiotic therapy plus bronchodilator therapy. 3. Urinary tract infection secondary to Enterobacter. Continue on intravenous antibiotic therapy. 4. Atrial fibrillation. The patient is rate controlled. Continue on Cardizem. 5. Situational depression. Continue on Cymbalta. 6. Dyslipidemia. Continue on Pravachol. 7. Diabetes mellitus type 2. Continue on sliding scale insulin. 8. Continue with physical therapy. cc: Lazara Garcia MD
--- NOTE | 2017-02-01 17:21 | PROGRESS NOTE ---
DATE: 02/01/2017 PRESENT ILLNESS: The patient has an enterococcal bacteremia and Enterobacter urinary tract infection and possible bibasilar pneumonia. MEDICATIONS: The patient is on day 3 of a combination of IV ampicillin and cefepime. PHYSICAL EXAMINATION: Vital Signs: Temperature is 97.9 degrees, pulse 86, respirations 18, blood pressure 129/50. General: This is an ill-appearing, elderly female who is in no acute distress. She is slightly lethargic. Lungs: Clear to auscultation. Cardiovascular: Regular heart rate. Abdomen: Soft and nontender. Neurologic: Patient is awake. She is feeding herself dinner. There is no tremor. LAB AND X-RAY: The patient's CBC shows a white count of 8,240, hemoglobin 9.2, and platelet count 274,000. Creatinine 0.4. GFR is greater than 60. ASSESSMENT AND PLAN: The patient is being treated for a urinary tract infection, bacteremia, and possible pneumonia with a combination of ampicillin and cefepime. The patient's comorbidities include being elderly, diabetes mellitus, and gastroesophageal reflux disease. cc: Carlos Ardon MD
[2017-02-02] MEDS: ELIQUIS PO SCH ×3 (00:03→23:21)
[2017-02-02] MEDS: COLACE PO SCH ×3 (00:03→23:22)
[2017-02-02] MEDS: PRILOSEC PO SCH ×3 (00:03→23:21)
[2017-02-02] MEDS: MUCINEX PO SCH ×3 (00:03→23:21)
[2017-02-02] MEDS: PRAVACHOL PO SCH ×2 (00:03→23:22)
[2017-02-02] MEDS: XANAX PO SCH ×3 (00:03→23:22)
[2017-02-02] MEDS: CULTURELLE PO SCH ×3 (00:03→23:21)
[2017-02-02] MEDS: AMPICILLIN 2 GM/NS 2 GM/100 ML IVPB IV SCH ×5 (00:04→23:20)
[2017-02-02] MEDS: MAXIPIME 2 GM/NS 2 GM/100 ML IVPB IV SCH ×3 (00:08→23:14)
[2017-02-02] MEDS: HUMALOG SUBQ SCH ×5 (00:17→23:43)
[2017-02-02] MEDS: DUONEB (A & A) INH SCH ×6 (03:34→23:47)
[2017-02-02 07:13] LABS: HEMOGLOBIN 8.6 g/dL (12.0-16.0); MCHC 31.9 g/dL (33-37); MCV 87.9 FL (81-99); MPV 9.4 FL (7.4-10.4); RBC 3.07 XMIL (4.2-5.4)
[2017-02-02 07:21] LABS: AGAP 5; ALBUMIN 2.3 g/dL (3.5-5.0); BUN 5 mg/dL (8-22); CALCIUM 8.2 mg/dL (8.8-10.2); CHLORIDE 102 mmol/L (98-107); COSMO 269; MAGNESIUM 1.8 mg/dL (1.5-2.7); POTASSIUM 4.1 mmol/L (3.5-5.1); SODIUM 135 mmol/L (136-145); TCO2 28 mmol/L (25-35)
[2017-02-02] MEDS: DIFLUCAN PO SCH (08:23)
[2017-02-02] MEDS: CYMBALTA PO SCH (08:24)
[2017-02-02] MEDS: LANTUS SUBQ SCH (08:24)
[2017-02-02] MEDS: MUCOMYST 20% INH SCH ×2 (09:11→19:49)
[2017-02-02] MEDS ORDERED: SODIUM PHOSPHATE IV ONE (09:47)
[2017-02-02] MEDS ORDERED: NS IV ONE (09:47)
--- NOTE | 2017-02-02 13:10 | PROGRESS NOTE ---
DATE: 02/02/2017 SUBJECTIVE: The patient is resting comfortably in bed. She states that she does not feel well today. OBJECTIVE: Vital Signs: Temperature 97.9, blood pressure 138/64, heart rate 91, respirations 18, O2 saturations 95% on 2 L nasal cannula. General: This is an elderly female, sitting up in bed in no acute distress. Head: Normocephalic, atraumatic. Heart: S1, S2. Normal. Regular rate and rhythm. Lungs: Coarse breath sounds. No crackles. No rales. Abdomen: Positive bowel sounds. Soft, nontender, nondistended. Extremities: No edema. No cyanosis. No calf tenderness. Neurologic: The patient is awake and alert. LABS: White blood cell count 9, hemoglobin 8.6, hematocrit 27, platelets 253. Sodium 135, potassium 4.1, chloride 102, CO2 28, BUN 5, creatinine 0.4, glucose 131, phosphorus 2.5, magnesium 1.8, albumin 2.3. ASSESSMENT AND PLAN: 1. Left lower lobe pneumonia. Continue on intravenous antibiotic therapy. 2. Enterococcus faecalis bacteremia. Continue on intravenous antibiotic therapy. 3. Urinary tract infection secondary to Enterobacter. Continue on the current intravenous antibiotic regimen. 4. Atrial fibrillation. Continue on Cardizem and Eliquis. 5. Hypophosphatemia. Will replace the patient's phosphorus. 6. Hypothyroidism. Continue on Synthroid. 7. Diabetes mellitus type 2. Continue on sliding scale insulin. 8. Continue with physical therapy. cc: Lazara Garcia MD
[2017-02-02] MEDS: SANTYL OINT TOP SCH (15:21)
--- NOTE | 2017-02-02 16:58 | PROGRESS NOTE ---
DATE: 02/02/2017 PRESENT ILLNESS: The patient has enterococcal bacteremia, Enterobacter urinary tract infection and bibasilar pneumonia. MEDICATIONS: The patient is receiving IV ampicillin and Cefepime. This is the 4th day of treatment with those agents. PHYSICAL EXAMINATION: Vital Signs: Temperature is 97.9 degrees, pulse 88, respirations 18, blood pressure 136/50. Generally: This is an ill-appearing elderly female. She is in no acute distress. She is somewhat lethargic, and I cannot understand her when she talks. Lungs: Clear to auscultation. Cardiovascular: Heart rate is regular. Abdomen: Soft and nontender. LABORATORY AND X-RAY: CBC today shows a white count of 9020, hemoglobin 8.6, and platelet count 253,000. Creatinine 0.4, GFR is greater than 60. ASSESSMENT AND PLAN: 1. I plan to continue the patient's antibiotics for urinary tract infection, bacteremia and pneumonia. The antibiotics in question are ampicillin and cefepime. Comorbidities: Include being elderly, diabetes mellitus, and gastroesophageal reflux disease. cc: Carlos Ardon MD
[2017-02-03] MEDS: DUONEB (A & A) INH SCH ×6 (03:34→23:27)
[2017-02-03] MEDS: AMPICILLIN 2 GM/NS 2 GM/100 ML IVPB IV SCH ×4 (05:38→22:03)
[2017-02-03] MEDS: HUMALOG SUBQ SCH ×4 (07:04→21:35)
[2017-02-03] MEDS: SYNTHROID PO SCH (07:18)
[2017-02-03] MEDS: MUCOMYST 20% INH SCH ×2 (07:33→19:28)
[2017-02-03 07:55] LABS: AGAP 10; ALBUMIN 2.5 g/dL (3.5-5.0); BUN 5 mg/dL (8-22); CALCIUM 8.8 mg/dL (8.8-10.2); CHLORIDE 104 mmol/L (98-107); COSMO 277; HEMATOCRIT 29.7 % (37.0-47.0); HEMOGLOBIN 9.3 g/dL (12.0-16.0); MCH 27.9 PG (27-31); MCHC 31.3 g/dL (33-37); MCV 89.2 FL (81-99); MPV 9.5 FL (7.4-10.4); POTASSIUM 3.7 mmol/L (3.5-5.1); RBC 3.33 XMIL (4.2-5.4); SODIUM 139 mmol/L (136-145); TCO2 25 mmol/L (25-35)
[2017-02-03] MEDS: MAXIPIME 2 GM/NS 2 GM/100 ML IVPB IV SCH ×2 (12:01→22:03)
[2017-02-03] MEDS: CYMBALTA PO SCH (12:01)
[2017-02-03] MEDS: MUCINEX PO SCH ×2 (12:01→22:04)
[2017-02-03] MEDS: ELIQUIS PO SCH ×2 (12:02→22:03)
[2017-02-03] MEDS: CULTURELLE PO SCH ×2 (12:02→22:04)
[2017-02-03] MEDS: COLACE PO SCH ×2 (12:02→22:04)
[2017-02-03] MEDS: PRILOSEC PO SCH ×2 (12:02→22:04)
[2017-02-03] MEDS: LANTUS SUBQ SCH (12:03)
[2017-02-03] MEDS: SANTYL OINT TOP SCH (12:08)
[2017-02-03] MEDS: DIFLUCAN PO SCH (12:08)
[2017-02-03] MEDS: XANAX PO SCH ×2 (12:08→22:04)
--- NOTE | 2017-02-03 14:24 | PROGRESS NOTE ---
DATE: 02/03/2017 SUBJECTIVE: The patient is resting comfortably in bed. She states that she does not feel good today. OBJECTIVE: Vital Signs: Temperature 97 degrees, blood pressure 126/71, heart rate 84, respirations 18, O2 saturations 100% on 2 L nasal cannula. General: This is a morbidly obese female, lying in bed, in no acute distress. Head: Normocephalic, atraumatic. Heart: S1, S2. Normal. Regular rate and rhythm. Lungs: Clear to auscultation bilaterally. Abdomen: Positive bowel sounds. Soft, nontender, nondistended. Extremities: The patient's right foot is wrapped in a clean, dry dressing. LABS: White blood cell count 9.6, hemoglobin 9.3, hematocrit 29.7, glucose 267, sodium 139, potassium 3.7, chloride 104, CO2 25, BUN 5, creatinine 0.4, glucose 133, albumin 2.5. ASSESSMENT AND PLAN: 1. Lower lobe pneumonia. Continue on IV antibiotic therapy. 2. Enterococcus faecalis bacteremia. Continue on IV antibiotic therapy. 3. Urinary tract infection secondary to Enterobacter. Continue on the current IV antibiotic therapy. 4. Atrial fibrillation. The patient is rate controlled. Continue on Eliquis plus Cardizem. 5. Hypothyroidism. Continue on Synthroid. 6. Diabetes mellitus type 2. Continue on sliding scale insulin. 7. Right heel wounds. Continue with the wound care. cc: Lazara Garcia MD
[2017-02-03] MEDS: PRAVACHOL PO SCH (22:04)
[2017-02-04] MEDS: DUONEB (A & A) INH SCH ×4 (03:16→15:30)
[2017-02-04] MEDS: AMPICILLIN 2 GM/NS 2 GM/100 ML IVPB IV SCH ×4 (03:35→20:00)
[2017-02-04] MEDS: SYNTHROID PO SCH (06:13)
[2017-02-04 07:00] LABS: MANUAL DIFF NEEDED? NO
[2017-02-04 07:15] LABS: BASO% 0.4 % (0.0-0.8); EOS# 0.38 X1000 (0.0-0.7); EOS% 5.3 % (0.0-10.0); HEMATOCRIT 29.7 % (37.0-47.0); HEMOGLOBIN 9.3 g/dL (12.0-16.0); IMM GRAN# 0.06 X1000 (0.0-0.04); IMM GRAN% 0.8 % (0.0-0.5); LYMPH# 2.16 X1000 (1.2-3.4); MCH 27.5 PG (27-31); MCHC 31.3 g/dL (33-37); MCV 87.9 FL (81-99); MONO# 0.51 X1000 (0.11-0.59); MONO% 7.1 % (1.7-9.3); MPV 9.3 FL (7.4-10.4); NEUT% 56.4 % (42.2-75.2); PLT 271 X1000 (130-400); RBC 3.38 XMIL (4.2-5.4)
[2017-02-04] MEDS ORDERED: INSULIN PEN NEEDLES ONE (07:19)
[2017-02-04 07:36] LABS: AGAP 7; ALBUMIN 2.4 g/dL (3.5-5.0); BUN 4 mg/dL (8-22); CALCIUM 8.6 mg/dL (8.8-10.2); CHLORIDE 103 mmol/L (98-107); COSMO 270; POTASSIUM 3.7 mmol/L (3.5-5.1); SODIUM 136 mmol/L (136-145); TCO2 26 mmol/L (25-35)
[2017-02-04] MEDS: MUCOMYST 20% INH SCH (07:53)
[2017-02-04] MEDS: NORCO-10 PO PRN (08:14)
[2017-02-04] MEDS: MUCINEX PO SCH ×2 (08:17→20:00)
[2017-02-04] MEDS: CULTURELLE PO SCH ×2 (08:18→20:00)
[2017-02-04] MEDS: DIFLUCAN PO SCH (08:18)
[2017-02-04] MEDS: ELIQUIS PO SCH ×2 (08:18→20:00)
[2017-02-04] MEDS: COLACE PO SCH ×2 (08:18→20:00)
[2017-02-04] MEDS: CYMBALTA PO SCH (08:18)
[2017-02-04] MEDS: MAXIPIME 2 GM/NS 2 GM/100 ML IVPB IV SCH ×2 (08:20→20:00)
[2017-02-04] MEDS: XANAX PO SCH ×2 (08:24→20:00)
[2017-02-04] MEDS: LANTUS SUBQ SCH (08:24)
[2017-02-04] MEDS: PRILOSEC PO SCH ×2 (08:24→20:00)
[2017-02-04] MEDS: HUMALOG SUBQ SCH ×4 (08:30→21:18)
--- NOTE | 2017-02-04 16:19 | PROGRESS NOTE ---
DATE: 02/04/2017 SUBJECTIVE: The nurse today reported that the patient may be aspirating whenever she tries to eat or drink anything. The patient states that she feels better today. OBJECTIVE: Vital Signs: Temperature 98.4 degrees, blood pressure 135/65, heart rate 77, respirations 16, O2 saturation is 96% on 2 L nasal cannula. General: This is an elderly female, lying in bed, in no acute distress. Head: Normocephalic, atraumatic. Heart: S1, S2. Normal. Regular rate and rhythm. Lungs: Coarse breath sounds bilaterally. No crackles. No rales. Abdomen: Positive bowel sounds. Soft, nontender, nondistended. Extremities: The right foot is wrapped in a clean, dry dressing. No edema. Neurologic: The patient is awake and alert. She is able to move all 4 extremities. LABS: White blood cell count 7.2, hemoglobin 9.3, hematocrit 29, platelets 271,000. Sodium 136, potassium 3.7, chloride 103, CO2 26, BUN 4, creatinine 0.4. ASSESSMENT AND PLAN: 1. Pneumonia. Continue on IV antibiotics. 2. Enterococcus faecalis bacteremia. Continue on the current IV antibiotic regimen as directed by Dr. Ardon. 3. Urinary tract infection secondary to Enterobacter. Continue on IV antibiotic therapy. 4. Possible aspiration. We will order a modified barium swallow to be done tomorrow. We will make the patient NPO for now. 5. Paroxysmal atrial fibrillation. The patient is currently rate controlled. Continue on Cardizem and Eliquis. 6. Hypothyroidism. Continue on Synthroid. 7. Right foot wound. Continue with wound care. 8. Diabetes mellitus type 2. Continue on sliding scale insulin. 9. Continue on physical therapy. cc: Lazara Garcia MD
[2017-02-04] MEDS: PRAVACHOL PO SCH (19:59)
[2017-02-04] MEDS: SANTYL OINT TOP SCH (21:00)
[2017-02-05] MEDS: DUONEB (A & A) INH SCH ×6 (03:35→23:30)
[2017-02-05] MEDS: AMPICILLIN 2 GM/NS 2 GM/100 ML IVPB IV SCH ×4 (03:59→21:41)
[2017-02-05] MEDS: HUMALOG SUBQ SCH ×3 (06:25→17:10)
[2017-02-05] MEDS: SYNTHROID PO SCH (06:26)
[2017-02-05 06:38] LABS: MANUAL DIFF NEEDED? NO
[2017-02-05 06:55] LABS: BASO% 0.5 % (0.0-0.8); EOS# 0.47 X1000 (0.0-0.7); EOS% 5.3 % (0.0-10.0); HEMOGLOBIN 9.7 g/dL (12.0-16.0); IMM GRAN# 0.05 X1000 (0.0-0.04); IMM GRAN% 0.6 % (0.0-0.5); LYMPH# 2.13 X1000 (1.2-3.4); MCH 27.8 PG (27-31); MCHC 31.3 g/dL (33-37); MCV 88.8 FL (81-99); MONO# 0.79 X1000 (0.11-0.59); MONO% 8.9 % (1.7-9.3); MPV 9.6 FL (7.4-10.4); NEUT% 60.7 % (42.2-75.2); PLT 287 X1000 (130-400); RBC 3.49 XMIL (4.2-5.4)
[2017-02-05 07:27] LABS: AGAP 11; ALBUMIN 2.4 g/dL (3.5-5.0); BUN 7 mg/dL (8-22); CALCIUM 8.8 mg/dL (8.8-10.2); CHLORIDE 103 mmol/L (98-107); COSMO 274; POTASSIUM 4.1 mmol/L (3.5-5.1); SODIUM 138 mmol/L (136-145); TCO2 24 mmol/L (25-35)
[2017-02-05] MEDS: MUCOMYST 20% INH SCH ×2 (07:32→19:40)
[2017-02-05] MEDS: MAXIPIME 2 GM/NS 2 GM/100 ML IVPB IV SCH ×2 (08:55→21:41)
[2017-02-05] MEDS: DIFLUCAN PO SCH (11:39)
[2017-02-05] MEDS: COLACE PO SCH ×2 (11:39→21:42)
[2017-02-05] MEDS: PRILOSEC PO SCH ×2 (11:39→21:10)
[2017-02-05] MEDS: MUCINEX PO SCH ×2 (11:39→21:41)
[2017-02-05] MEDS: ELIQUIS PO SCH ×2 (11:39→21:41)
[2017-02-05] MEDS: CYMBALTA PO SCH (11:39)
[2017-02-05] MEDS: CULTURELLE PO SCH ×2 (11:39→21:41)
[2017-02-05] MEDS: LANTUS SUBQ SCH (11:41)
[2017-02-05] MEDS: XANAX PO SCH ×2 (11:41→21:41)
[2017-02-05] MEDS: SANTYL OINT TOP SCH (11:45)
--- NOTE | 2017-02-05 15:23 | Diag Imaging Result Document ---
PROCEDURE NAME: BA SWALLOW W/VIDEO SPEECH THER - 02/05/2017 MODIFIED BARIUM SWALLOW WITH SPEECH THERAPIST: FINDINGS: Total dose is 180 mGy. Fluoro time is 20 seconds. Thin barium and barium mixed with pudding was swallowed. No aspiration occurred during swallowing. Normal primary and secondary peristalsis. Later imaging including the lower esophagus reveals prominent tertiary contractions. There is neither a tiny diverticulum or outpouching in the mid to distal esophagus. 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 [facility]
[2017-02-05] MEDS ORDERED: SODIUM PHOSPHATE 40 MEQ in NS 250 ML IV ONE (15:30)
--- NOTE | 2017-02-05 15:52 | PROGRESS NOTE ---
DATE: 02/05/2017 SUBJECTIVE: Patient complaining of just diffuse pain. No focal issues. She is sitting up in bed but she is kind of moaning softly. I am not sure how far off her baseline she is right now but again, no focal complaints. OBJECTIVE: Vital signs: Blood pressure 125/67, heart rate of 76, respiratory rate 18, temperature 98.1 degrees, 99% on 2 L. Cardiovascular: Regular rate and rhythm. Pulmonary: Bilateral breath sounds. Clear to auscultation. GI: Soft, nontender, nondistended. Bowel sounds are positive. LABORATORY DATA: White count 8.8, hemoglobin and hematocrit 9 and 31, platelets 287,000. CMP was otherwise normal. Phosphatase was low at 2.4, albumin of 2.4. ASSESSMENT: This is a 86-year-old female with pneumonia and bacteremia. 1. Pneumonia. She is on intravenous antibiotics cefepime that will be day 7, she is also on ampicillin, odd, she is also on day 7 of that, that is for an enterococcal bacteremia not clear the source but she did have bacteremia. Repeat blood cultures from the 5th are negative. 2. Enterococcal bacteremia. She is completing her antibiotic course. Again she has been on about 7 days, I guess she will need to 2 weeks total I think, will discuss with Dr. Ardon, I do not know if the plan is for her to go home or she is from especially she is from a [facility] facility yes she is so she will need I am assuming a PICC for IV antibiotics but we will continue to follow or she has a PICC I think that is already kind of set up. We will plan for her to go next 1-2 days. 3. Dysphagia. A barium swallow is being processed. 4. Hypophosphatemia. We will supplement and follow. cc: Emir Smith MD
--- NOTE | 2017-02-05 16:17 | PROGRESS NOTE ---
DATE: 02/05/2017 PRESENT ILLNESS: The patient has an enterococcal bacteremia, Enterobacter urinary tract infection and bibasilar pneumonia. MEDICATIONS: The patient is receiving IV ampicillin and cefepime. This is day 7 with treatment with both of these agents. PHYSICAL EXAMINATION: Vital Signs: Temperature is 98 degrees, pulse 76, respirations 18, blood pressure 120/60. General: This is a somewhat ill-appearing, elderly female. She is in no acute distress. Lungs: Clear to auscultation. Cardiovascular: Heart rate is regular. Abdomen: Soft and nontender. Neurologic: The patient is alert. She can move her extremities. There is no tremor. LAB AND X-RAY: The patient's CBC for today shows a white count of 8860, hemoglobin 9.7, and platelet count 287,000. Creatinine is 0.4. GFR is greater than 60. There is no new radiographic study today. ASSESSMENT AND PLAN: I plan to continue for another week the patient's 2 antibiotics namely IV ampicillin and cefepime to treat the bacteremia, urinary tract infection and pneumonia. COMORBIDITIES: Diabetes mellitus, gastroesophageal reflux disease and being elderly. cc: Carlos Ardon MD
[2017-02-05] MEDS: PRAVACHOL PO SCH (21:41)
[2017-02-06] MEDS: AMPICILLIN 2 GM/NS 2 GM/100 ML IVPB IV SCH ×3 (02:47→18:12)
[2017-02-06] MEDS: DUONEB (A & A) INH SCH ×4 (03:42→15:22)
[2017-02-06] MEDS: SYNTHROID PO SCH (06:01)
[2017-02-06] MEDS: HUMALOG SUBQ SCH ×4 (06:02→17:46)
[2017-02-06 07:01] LABS: HEMATOCRIT 31.2 % (37.0-47.0); HEMOGLOBIN 9.8 g/dL (12.0-16.0); MCH 28.4 PG (27-31); MCHC 31.4 g/dL (33-37); MCV 90.4 FL (81-99); MPV 10.4 FL (7.4-10.4); RBC 3.45 XMIL (4.2-5.4)
[2017-02-06 07:23] LABS: AGAP 10; BUN 7 mg/dL (8-22); CHLORIDE 105 mmol/L (98-107); COSMO 281; SODIUM 141 mmol/L (136-145); TCO2 26 mmol/L (25-35)
[2017-02-06] MEDS: MUCOMYST 20% INH SCH (07:23)
[2017-02-06] MEDS: ELIQUIS PO SCH (08:49)
[2017-02-06] MEDS: MUCINEX PO SCH (08:49)
[2017-02-06] MEDS: LANTUS SUBQ SCH (08:49)
[2017-02-06] MEDS: DIFLUCAN PO SCH (08:50)
[2017-02-06] MEDS: PRILOSEC PO SCH (08:50)
[2017-02-06] MEDS: CYMBALTA PO SCH (08:50)
[2017-02-06] MEDS: CULTURELLE PO SCH (08:50)
[2017-02-06] MEDS: XANAX PO SCH (08:50)
[2017-02-06] MEDS: COLACE PO SCH (08:50)
[2017-02-06] MEDS: MAXIPIME 2 GM/NS 2 GM/100 ML IVPB IV SCH (09:03)
[2017-02-06] MEDS: SANTYL OINT TOP SCH (12:24)
--- NOTE | 2017-02-06 15:31 | PROGRESS NOTE ---
DATE: 02/06/2017 PRESENT ILLNESS: The patient has an Enterobacter urinary tract infection and enterococcal bacteremia and bibasilar pneumonia. MEDICATIONS: The patient is on day 8 of treatment with IV ampicillin and cefepime. PHYSICAL EXAMINATION: Vital Signs: Temperature is 98.3 degrees, pulse 82, respirations 16, blood pressure 140/67. General: This is a chronically ill-appearing, elderly female. She converses. She seems a little bit lethargic. Lungs: Clear to auscultation. Cardiovascular: Regular heart rate. Abdomen: Soft and nontender. Extremities: The PICC site in the patient's right arm is not erythematous or swollen. The right heel has a small ulcerated area. The ulcer itself has beefy red tissue in it. There is no surrounding erythema. No purulence or necrosis. LAB AND X-RAY: There is no new x-ray. The CBC for today has a white count of 7370, hemoglobin 9.8 and platelet count 284,000. Creatinine is 0.4. GFR is greater than 60. There is no new radiographic study today. ASSESSMENT AND PLAN: The plan is to continue both antibiotics today to treat the patient's bacteremia and urinary tract infection and pneumonia for another week. COMORBIDITIES: The patient's comorbidities include diabetes mellitus, gastroesophageal reflux disease, and being elderly. cc: Carlos Ardon MD
--- NOTE | 2017-02-06 16:08 | DISCHARGE SUMMARY ---
ADMISSION DATE: 01/25/2017 DISCHARGE DATE: 02/06/2017 CONSULTATIONS: Dr. Carlos Ardon with Infectious Disease. PERTINENT PROCEDURES: 1. Head CT negative. 2. Chest CT showed cardiomegaly with small effusion, bibasilar atelectasis and questionable underlying infiltrate in the left lower lobe evidence of prior granulomatosis infection. 3. 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 DISCHARGE DIAGNOSES: 1. Pneumonia. Continue IV antibiotics. 2. Enterococcus faecalis bacteremia. Continue with 1 more week of IV antibiotics with cefepime and ampicillin per Dr. Ardon. 3. Urinary tract infection secondary to Enterobacter. Continue with cefepime and ampicillin. 4. Possible aspiration ruled out with barium swallow that was performed last date. Barium swallow was negative. 5. Proximal atrial fibrillation currently rate controlled. Continue Cardizem and Eliquis. 6. Hypothyroidism. Continue Synthroid. 7. Right foot wound. Continue with wound care. 8. Diabetes mellitus type 2. Continue with current management. 9. Acute kidney injury secondary to dehydration. Resolved. 10. Metabolic encephalopathy. Resolved. 11. Depression. Continue home medications. HOSPITAL COURSE: Briefly, Ms Merchant is an 86-year-old, female, a resident of [facility]. Carries a past medical history of chronic atrial fibrillation, hypertension, diabetes mellitus type 2, hypothyroidism, GERD, peripheral artery disease, coronary artery disease , iron deficiency anemia, and gout. The patient was found on the floor at [facility] by staff, trying to grab at imaginary objects and taking them to her who has been for a while. The patient was brought in by EMS for further evaluation. The patient was confused on admission, but calm. Patient did have a head CT that did not show anything acute, a chest x-ray that showed a right lower lobe pneumonia, acute kidney injury secondary to dehydration. Patient was admitted and started on IV antibiotics as well as IV hydration. Patient's blood cultures grew out enterococcal bacteremia and her urine culture grew out Enterobacter for which Dr. Carlos Ardon was consulted. Patient was started on IV ampicillin and cefepime. Throughout patient's admission she worked with physical therapy. There were concerns for aspiration versus dysphagia. 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 The patient was also noted to have right heel wounds for which the wound care nurse was seeing the patient. The wound is being cleaned with normal saline and applying Santyl and secured with a Kerlix. We are going to continue that current care. Patient's heels will also need to be elevated while she is in the bed and we have had [facility] [employer] contact the [facility]. They have agreed that they can do the patient's antibiotics IV q.8 and IV q.6 hours. The patient is appropriate for discharge back to rehab today. VITAL SIGNS: Temperature is 97.8 degrees, heart rate 82, respirations 16, blood pressure 133/64. O2 is 97% on 2 L nasal cannula. DISCHARGE DIET: Pureed. The patient will need to be out of the bed for all meals. DISCHARGE MEDICATIONS: 1. Allopurinol 100 mg p.o. daily. 2. Xanax 0.25 mg p.o. t.i.d. 3. Eliquis 2.5 mg p.o. b.i.d. 4. Zyrtec 10 mg p.o. daily. 5. Voltaren 1 each p.o. topical 4 times a day. 6. Cardizem 90 mg p.o. daily. 7. Colace 100 mg p.o. b.i.d. 8. Cymbalta 60 mg p.o. daily. 9. Lasix 40 mg p.o. b.i.d. 10. Guaifenesin ER 600 mg p.o. b.i.d. 11. [place] 10/325 mg 1 each p.o. q.6 hours p.r.n. 12. Lantus 15 units subcu daily. 13. Ipratropium albuterol sulfate 1 each inhaled q.6 hours p.r.n. 14. Synthroid 125 mcg p.o. daily. 15. Lisinopril 10 mg p.o. q.a.m. 16. Ativan 0.5 mg p.o. at bedtime. 17. Prilosec 20 mg a day. 18. Klor-Con 20 mEq p.o. b.i.d. 19. Mirapex 1 each p.o. daily. 20. Pravastatin 80 mg p.o. at bedtime. 21. Lyrica 25 mg p.o. b.i.d. 22. Ampicillin 2 g IV q.6 hours x1 week. 23. Cefepime 2 g IV q.12 hours x1 week. FOLLOWUP: Patient is being discharged back to [facility]. She will complete a full course of IV antibiotics x1 week with IV ampicillin and IV cefepime as per Dr. Carlos Ardon with Infectious Disease. Continue with her right heel wound care. The patient can return to the ED for any worsening of symptoms. DISCHARGE TIME: Greater than 30 minutes. Dictated by [facility] for Emir Smith MD cc: Emir Smith MD pt examined, discussed above plan, agree with above [facility] MTDD
[2017-02-06 17:14] VITALS: BP 148/64
== END 2017-02-06 19:40 ==
LOC: EDBD → ED 21:21 → EDUNIT# 21:21 → ICU 01-25 03:32 → SUATTDRO 01-25 03:32 → 3N 01-30 00:09
PROVIDERS: ATTEND Internal Medicine